=== PATIENT | female | born 1950 | race African-American/Black ===

== ENCOUNTER 2017-11-11 23:36 | Inpatient (IN) | payer OTHER ==
[~2017-11-11] VITALS: Ht 152.4 cm; Wt 63.5 kg
--- NOTE | ~2017-11-11 | WRIGHTHP ---
[place], [place] PATIENT HISTORY AND PHYSICAL EXAM NAME: JEANNIE FINCH UNIT #: [id number] ROOM: 314 DOCTOR: NIHARIKA VELAZQUEZ MD BIRTHDATE: [birth year] DOS: 11/12/2017 CHIEF COMPLAINT: "I need to find a new home. I need to call Andrew." HISTORY OF PRESENT ILLNESS: This is a 67-year-old black female who is a resident of the [facility]. The patient apparently has a lengthy history of schizoaffective disorder. Her daughter is her power of attorney lawyer. Daughter has been paying for her to go out to have nails done and go shopping. However, on a recent trip, the patient went to see her primary care doctor who did prescribe her several insulin pens and Percocet and she then went to pick these up at the pharmacy and kept them with her. Staff then noted that she refused to give up the insulin and was injecting herself with high doses of insulin putting herself at significant risk of harm. The patient has been noncompliant with her care and has been volatile and paranoid and agitated. When she was admitted here to the unit initially she was found to have $5500 in her purse, as well as two containers of a white powder crystalline substance that she claims is baking soda that was confiscated by the police to be analyzed. The patient since her admission has been volatile and demanding and her stories have been somewhat inconsistent. She does seem to be paranoid and delusional and she is admitted now to rule out any multiple possible organic issues, stabilizing on medication and then returning to the least restrictive environment. PAST MEDICAL HISTORY: Remarkable for asthma, chronic kidney disease, depression, diabetes, seizures, GERD, congestive heart failure, hyperlipidemia, hypertension, hypothyroidism, iron deficiency anemia, psoriasis, sleep apnea, TIAs, vitamin D deficiencies and schizoaffective disorder. MENTAL STATUS: The patient is alert and oriented x 3 with some time gaps. Mood does seem to be labile. Affect is inappropriate. She jumps from topic to topic. She is very much fixated on calling Andrew. At first she stated that Andrew was somebody who was helping her with placement. After repeatedly stating that we would help her with placement, she then stated that Andrew was somebody else she needed to talk to. She would not elaborate any further. Memory for the most part is intact with some gaps. DIAGNOSIS: Schizoaffective disorder. PLAN: She has been started on Risperdal M-Tab to improve compliance. I will plan to load with Invega Sustenna 234 mg IM tomorrow. Vitamin D level is low at 11.7. We will augment with vitamin D 50,000 units weekly. The [facility] Police have confiscated the two containers of the white powdery substance and are analyzing them. 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 We will continue to attempt to engage the patient in individual and guillen milieu activity with the ultimate plan to return to the least restrictive environment when psychiatrically stable. [place], [place] PATIENT HISTORY AND PHYSICAL EXAM NAME: JEANNIE FINCH UNIT #: [id number] ROOM: [facility] DOCTOR: NIHARIKA VELAZQUEZ MD BIRTHDATE: [birth year] NIHARIKA VELAZQUEZ MD CM:HISPHYS:PATIENT HISTORY AND PHYSICAL EXAMINATION 1236 1300 NIHARIKA VELAZQUEZ MD 11/12/17 1300 interface
[~2017-11-11 23:36] MED LIST: AMLODIPINE BESY10 MG PO; ASPIRIN325 MG PO; CARVEDILOL25 MG PO; DULERA 200 MCG8.8 GM INH; DUONEB 3 MG/3 ML3 M1 INH; HUMALOG100 UNIT/1 SC; HYDRALAZINE HYD50 MG PO; IRON325 M1 PO; LANTUS SOL100 UNIT/1 SC; LASIX40 MG PO; LEVOTHYROXINE100 MC1 PO; LIPITOR40 MG PO; LOSARTAN POTAS100 M1 PO; MIRALAX119 GM PO; PANTOPRAZOLE SO40 MG PO; PROAIR HFA8.5 GM INH
[2017-11-11 23:55] VITALS: BP 176/80
[2017-11-12 00:30] LABS: BILIRUBIN NEGATIVE (NEGATIVE); BLOOD 2+ (NEGATIVE); CLARITY CLEAR (CLEAR); COLOR YELLOW (YELLOW); GLUCOSE 2+ (NEGATIVE); KETONE NEGATIVE (NEGATIVE); LEUKO ESTERASE NEGATIVE (NEGATIVE); NITRITE NEGATIVE (NEGATIVE); PH 5.5 (5.0-9.0); UROBILINOGEN 0.2 E.U./dl (0.2-1.0)
[2017-11-12 00:39] LABS: URINE AMPHETAMINES < 1000 (1000ng/ml); URINE BARBITURATES < 200 (200ng/ml); URINE BENZODIAZEPINES < 200 (200ng/ml); URINE CANNABINOIDS (THC) < 50 (50ng/ml); URINE COCAINE < 300 (300ng/ml); URINE METHADONE < 300 (300ng/ml); URINE OPIATES < 300 (300ng/ml); URINE PHENCYCLIDINE < 25 (25ng/ml)
[2017-11-12 01:08] VITALS: BP 168/84
[2017-11-12 01:10] LABS: BASO % 0.3 % (0.0-1.0); EOS # 0.2 10*3/uL (0.0-0.4); EOS % 2.7 % (1.0-4.0); HEMATOCRIT 27.5 % (37.0-47.0); HEMOGLOBIN 8.9 g/dl (12.0-16.0); LYMPH # 1.4 10*3/uL (1.3-4.4); LYMPH % 21.8 % (27.0-41.0); MEAN CELL VOLUME 87.6 fl (81.0-99.0); MEAN CORPUSCULAR HGB 28.3 pg (27.0-31.0); MEAN CORPUSCULAR HGB CONC 32.4 g/dl (33.0-37.0); MEAN PLATELET VOLUME 9.7 fl (9.6-12.3); MONO # 0.5 10*3/uL (0.1-1.0); MONO % 8.2 % (3.0-9.0); NEUT # 4.2 10*3/uL (2.3-7.9); NEUT % 66.8 % (47.0-73.0); PLATELET COUNT AUTOMATED 244 10*3/uL (130-400); RED BLOOD COUNT 3.14 10*6/uL (4.10-5.10); RED CELL DISTRI WIDTH 17.5 % (0-14.5); WHITE BLOOD COUNT 6.2 10*3/uL (4.8-10.8)
[2017-11-12 01:26] LABS: ACETAMINOPHEN (TYLENOL) < 2.0 ug/ml (10-30); ALBUMIN 2.7 gm/dl (3.1-4.5); ALKALINE PHOSPHATASE 115 U/L (45-117); BUN 52 mg/dl (7-24); CHLORIDE 110 mmol/L (98-107); CREATININE 2.56 mg/dL (0.55-1.02); ETHYL ALCOHOL < 3.0 mg/dl (<3); POTASSIUM 4.6 mmol/L (3.5-5.1); SGOT/AST 24 IU/L (3-35); SGPT/ALT 43 U/L (12-78); SODIUM 137 mmol/L (136-145); TOTAL PROTEIN 6.4 gm/dL (6.4-8.2)
[2017-11-12 03:49] VITALS: BP 180/73
[2017-11-12 08:23] VITALS: BP 180/80
[2017-11-12 08:25] LABS: VITAMIN D, 25-HYDROXY 11.7 ng/mL (30-100)
[2017-11-12 14:00] VITALS: BP 142/58
[2017-11-12 23:19] VITALS: BP 142/78
[2017-11-13 03:15] VITALS: BP 161/61
[2017-11-13] MEDS ORDERED: REMERON SOLTAB15 MG PO (03:51)
[2017-11-13] MEDS ORDERED: RISPERDAL M-TAB1 MG PO (03:52)
[2017-11-13] MEDS ORDERED: INVEGA SUSTENN234 MG IM (03:54)
== END 2017-11-13 03:49 | disposition short-term general hospital (02) | DRG 885 ==
LOC: ED → 3N 11-12 01:43
PROVIDERS: Emergency Medicine Emergency Medical Services; Psychiatry & Neurology Psychiatry
DX: F25.9 Schizoaffective disorder, unspecified (principal); N17.0 Acute kidney failure with tubular necrosis; E87.8 Other disorders of electrolyte and fluid balance, not elsewhere classified; E44.0 Moderate protein-calorie malnutrition; N18.4 Chronic kidney disease, stage 4 (severe); I13.0 Hypertensive heart and chronic kidney disease with heart failure and stage 1 through stage 4 chronic kidney disease, or unspecified chronic kidney disease; I50.9 Heart failure, unspecified; D50.9 Iron deficiency anemia, unspecified; J45.909 Unspecified asthma, uncomplicated; F32.9 Major depressive disorder, single episode, unspecified; G47.30 Sleep apnea, unspecified; L40.9 Psoriasis, unspecified; E55.9 Vitamin D deficiency, unspecified; F41.9 Anxiety disorder, unspecified; E11.22 Type 2 diabetes mellitus with diabetic chronic kidney disease; K21.9 Gastro-esophageal reflux disease without esophagitis; E78.5 Hyperlipidemia, unspecified; E03.9 Hypothyroidism, unspecified; D72.810 Lymphocytopenia; E11.65 Type 2 diabetes mellitus with hyperglycemia; Z83.3 Family history of diabetes mellitus; Z88.6 Allergy status to analgesic agent; Z79.1 Long term (current) use of non-steroidal anti-inflammatories (NSAID); Z79.82 Long term (current) use of aspirin; Z79.899 Other long term (current) drug therapy; Z79.4 Long term (current) use of insulin; Z86.73 Personal history of transient ischemic attack (TIA), and cerebral infarction without residual deficits

== ENCOUNTER 2017-11-13 03:51 | Inpatient (IN) | payer OTHER ==
[~2017-11-13] VITALS: Ht 152.4 cm; Wt 74.6 kg
--- NOTE | ~2017-11-13 | CON ---
[place], [place] REPORT OF CONSULTATION NAME: JEANNIE FINCH UNIT #: [id number] ROOM: [facility] DOCTOR: NIHARIKA VELAZQUEZ MD BIRTHDATE: [birth year] DOS: 11/14/2017 PSYCHIATRIC CONSULT CHIEF COMPLAINT: "Oh they gave me too much insulin, I feel better now." HISTORY OF PRESENT ILLNESS: This is a 67-year-old black female who was initially admitted to the [facility] unit from the [facility], the patient was admitted due to significant mood alteration. She apparently had gone out of the building and went to her previous primary care doctor receiving multiple prescriptions for controlled substances as well as several insulin pens. She refused to give up the insulin pens and was given herself injections causing her blood sugar to be critically low. She represented a significant risk of harm to self and also others because she was making threats to staff and residents. She was ultimately admitted to the U. Following admission to the U, her blood sugar was found to be very high at 557. She was given 50 units of NovoLog and 10 units of Levemir. She was checked an hour later and was still 440. At 3 a.m., she was checked once again and her sugar was critically low. They were unable to give her any type of an amp of D50 and she ended up having a seizure. Rapid response was called and they were able to give her an amp of D50 IM and her seizure was resolved. She was transferred to ICU, however, for further medical workup and stabilization. She currently is alert and oriented. She does state that she is hopeful that we can help her, find alternative placement as it is possible that the [facility] does not want her back. PAST MEDICAL HISTORY: Remarkable for asthma, chronic kidney disease, diabetes, seizure disorder, GERD, heart failure, hyperlipidemia, hypertension, hypothyroidism, iron deficiency anemia, psoriasis, sleep apnea, vitamin D deficiency, TIAs and schizoaffective disorder. MENTAL STATUS: She is alert and oriented with some time gaps. Mood seems fairly euthymic. Affect appropriate. There is no christen or hypomania. There are no auditory or visual hallucinations. She engages readily in conversation. Memory for the most part is intact. DIAGNOSIS: Schizoaffective disorder by history. PLAN: At this point, I would be happy to take her back on to the [facility]al [facility] Unit for further evaluation and treatment. I would suggest that vp digital marketing social media and crm whether it be through ICU staff or our vp digital marketing social media and crm began to look for alternative placement for her. Should you require any further intervention, please feel free to contact me at any time. [place], [place] REPORT OF CONSULTATION NAME: JEANNIE FINCH UNIT #: [id number] ROOM: [facility] DOCTOR: NIHARIKA VELAZQUEZ MD BIRTHDATE: [birth year] NIHARIKA VELAZQUEZ MD CM:CONSTR:REPORT OF CONSULTATION 1052 11/14/17 1134 interface
[2017-11-13 03:45] VITALS: BP 153/55
[~2017-11-13 03:51] MED LIST changes: +REMERON SOLTAB15 MG PO
[2017-11-13] MEDS ORDERED: RISPERDAL M-TAB1 MG PO (03:52)
[2017-11-13] MEDS ORDERED: INVEGA SUSTENN234 MG IM (03:54)
[2017-11-13 04:00] VITALS: BP 153/55
[2017-11-13 04:21] LABS: BASO % 0.5 % (0.0-1.0); EOS # 0.2 10*3/uL (0.0-0.4); HEMATOCRIT 25.9 % (37.0-47.0); HEMOGLOBIN 8.5 g/dl (12.0-16.0); LYMPH # 0.9 10*3/uL (1.3-4.4); LYMPH % 21.9 % (27.0-41.0); MEAN CELL VOLUME 87.5 fl (81.0-99.0); MEAN CORPUSCULAR HGB 28.7 pg (27.0-31.0); MEAN CORPUSCULAR HGB CONC 32.8 g/dl (33.0-37.0); MEAN PLATELET VOLUME 9.7 fl (9.6-12.3); MONO # 0.4 10*3/uL (0.1-1.0); MONO % 9.9 % (3.0-9.0); NEUT # 2.7 10*3/uL (2.3-7.9); NEUT % 63.2 % (47.0-73.0); PLATELET COUNT AUTOMATED 219 10*3/uL (130-400); RED BLOOD COUNT 2.96 10*6/uL (4.10-5.10); RED CELL DISTRI WIDTH 17.6 % (0-14.5); WHITE BLOOD COUNT 4.3 10*3/uL (4.8-10.8)
[2017-11-13 04:38] LABS: ALBUMIN 2.6 gm/dl (3.1-4.5); CREATININE 2.78 mg/dL (0.55-1.02); PHOSPHOROUS 3.1 mg/dL (2.5-4.9); POTASSIUM 4.2 mmol/L (3.5-5.1); TOTAL PROTEIN 6.1 gm/dL (6.4-8.2)
[2017-11-13 08:00] VITALS: BP 157/67
[2017-11-13 12:00] VITALS: BP 172/80
[2017-11-13 15:26] LABS: BILIRUBIN NEGATIVE (NEGATIVE); BLOOD 2+ (NEGATIVE); CLARITY CLEAR (CLEAR); COLOR YELLOW (YELLOW); GLUCOSE 3+ (NEGATIVE); KETONE TRACE (NEGATIVE); LEUKO ESTERASE NEGATIVE (NEGATIVE); NITRITE NEGATIVE (NEGATIVE); PH 5.5 (5.0-9.0); SPECIFIC GRAVITY 1.015 (1.005-1.030); UROBILINOGEN 0.2 E.U./dl (0.2-1.0)
[2017-11-13 15:50] LABS: BACTERIA 2+; WBC 21-30 wbc/hpf (0-5)
[2017-11-13 16:00] VITALS: BP 122/50
[2017-11-13 20:00] VITALS: BP 142/78
[2017-11-14] VITALS: BP 154/52
[2017-11-14 04:00] VITALS: BP 119/53
[2017-11-14 05:53] LABS: ALBUMIN 2.3 gm/dl (3.1-4.5); CREATININE 2.57 mg/dL (0.55-1.02); PHOSPHOROUS 3.5 mg/dL (2.5-4.9); POTASSIUM 4.6 mmol/L (3.5-5.1); TOTAL PROTEIN 5.5 gm/dL (6.4-8.2)
[2017-11-14 05:54] LABS: BASO % 0.4 % (0.0-1.0); EOS # 0.1 10*3/uL (0.0-0.4); HEMATOCRIT 24.7 % (37.0-47.0); HEMOGLOBIN 8.1 g/dl (12.0-16.0); LYMPH # 1.1 10*3/uL (1.3-4.4); MEAN CELL VOLUME 88.2 fl (81.0-99.0); MEAN CORPUSCULAR HGB 28.9 pg (27.0-31.0); MEAN CORPUSCULAR HGB CONC 32.8 g/dl (33.0-37.0); MONO # 0.3 10*3/uL (0.1-1.0); MONO % 6.2 % (3.0-9.0); NEUT # 3.2 10*3/uL (2.3-7.9); PLATELET COUNT AUTOMATED 212 10*3/uL (130-400); RED CELL DISTRI WIDTH 17.3 % (0-14.5); WHITE BLOOD COUNT 4.7 10*3/uL (4.8-10.8)
[2017-11-14 08:00] VITALS: BP 150/60
[2017-11-14 12:00] VITALS: BP 155/93
[2017-11-14 16:00] VITALS: BP 101/67
[2017-11-14 20:00] VITALS: BP 152/63
[2017-11-15] VITALS: BP 154/61
[2017-11-15 05:54] LABS: BASO % 0.2 % (0.0-1.0); EOS # 0.1 10*3/uL (0.0-0.4); HEMATOCRIT 23.3 % (37.0-47.0); HEMOGLOBIN 8.1 g/dl (12.0-16.0); LYMPH # 1.2 10*3/uL (1.3-4.4); LYMPH % 26.7 % (27.0-41.0); MEAN CELL VOLUME 85.7 fl (81.0-99.0); MEAN CORPUSCULAR HGB 29.8 pg (27.0-31.0); MEAN CORPUSCULAR HGB CONC 34.8 g/dl (33.0-37.0); MEAN PLATELET VOLUME 10.4 fl (9.6-12.3); MONO # 0.4 10*3/uL (0.1-1.0); MONO % 8.1 % (3.0-9.0); NEUT # 2.7 10*3/uL (2.3-7.9); NEUT % 61.3 % (47.0-73.0); PLATELET COUNT AUTOMATED 206 10*3/uL (130-400); RED BLOOD COUNT 2.72 10*6/uL (4.10-5.10); RED CELL DISTRI WIDTH 17.3 % (0-14.5); WHITE BLOOD COUNT 4.3 10*3/uL (4.8-10.8)
[2017-11-15 06:05] LABS: CREATININE 2.34 mg/dL (0.55-1.02); POTASSIUM 4.9 mmol/L (3.5-5.1)
[2017-11-15 06:10] LABS: HEPATITIS B SURFACE AG Negative (Negative); HEPATITIS C VIRUS ANTIBODY 0.1 s/co (0.0-0.9)
[2017-11-15 08:00] VITALS: BP 170/66
[2017-11-15 08:13] LABS: COMPLEMENT C4 001834 28 mg/dL (14-44)
[2017-11-15 12:00] VITALS: BP 162/76
[2017-11-15] MEDS ORDERED: LASIX40 MG PO (13:13)
[2017-11-15] MEDS ORDERED: Insulin Lispro, Reco SC (13:13)
[2017-11-15] MEDS ORDERED: LEVEMIR100 UNIT/1 SC (13:13)
[2017-11-17 14:06] LABS: ATYPICAL PANCA <1:20 titer (Neg:<1:20); CYTOPLASMIC (C-ANCA) <1:20 titer (Neg:<1:20)
[2017-11-17 15:08] LABS: A/G RATIO 1.1 (0.7-1.7); ALBUMIN 2.7 g/dL (2.9-4.4); ALPHA-1-GLOBULIN 0.2 g/dL (0.0-0.4); ALPHA-2-GLOBULIN 0.9 g/dL (0.4-1.0); BETA GLOBULIN 0.7 g/dL (0.7-1.3); GAMMA GLOBULIN 0.7 g/dL (0.4-1.8); GLOBULIN, TOTAL 2.5 g/dL (2.2-3.9); M-SPIKE Not Observed g/dL (Not Observed); TOTAL PROTEIN, SERUM 5.2 g/dL (6.0-8.5)
== END 2017-11-15 14:51 | disposition home health service (06) | DRG 637 ==
LOC: ICCU 03:51 → 4E 11-14 15:10
PROVIDERS: Internal Medicine; Internal Medicine Hospice and Palliative Medicine; Student in an Organized Health Care Education/Training Program
DX: E11.649 Type 2 diabetes mellitus with hypoglycemia without coma (principal); E43 Unspecified severe protein-calorie malnutrition; N17.0 Acute kidney failure with tubular necrosis; I13.0 Hypertensive heart and chronic kidney disease with heart failure and stage 1 through stage 4 chronic kidney disease, or unspecified chronic kidney disease; G40.909 Epilepsy, unspecified, not intractable, without status epilepticus; E87.8 Other disorders of electrolyte and fluid balance, not elsewhere classified; I50.9 Heart failure, unspecified; E83.41 Hypermagnesemia; D50.9 Iron deficiency anemia, unspecified; N18.4 Chronic kidney disease, stage 4 (severe); J45.909 Unspecified asthma, uncomplicated; F32.9 Major depressive disorder, single episode, unspecified; K21.9 Gastro-esophageal reflux disease without esophagitis; F25.9 Schizoaffective disorder, unspecified; D72.810 Lymphocytopenia; E78.5 Hyperlipidemia, unspecified; E11.22 Type 2 diabetes mellitus with diabetic chronic kidney disease; E03.9 Hypothyroidism, unspecified; F41.9 Anxiety disorder, unspecified; K59.00 Constipation, unspecified; G47.30 Sleep apnea, unspecified; L40.9 Psoriasis, unspecified; Z68.28 Body mass index [BMI] 28.0-28.9, adult; Z79.4 Long term (current) use of insulin; Z86.73 Personal history of transient ischemic attack (TIA), and cerebral infarction without residual deficits; Z82.3 Family history of stroke; Z80.7 Family history of other malignant neoplasms of lymphoid, hematopoietic and related tissues; Z88.8 Allergy status to other drugs, medicaments and biological substances; Z79.82 Long term (current) use of aspirin; Z79.899 Other long term (current) drug therapy

== ENCOUNTER 2017-11-15 14:26 | Inpatient (IN) | payer OTHER ==
[~2017-11-15] VITALS: Ht 152.4 cm; Wt 65.8 kg
--- NOTE | ~2017-11-15 | PR ---
[place], [place] PROGRESS NOTE NAME: JEANNIE FINCH UNIT #: [id number] ROOM: 309 DOCTOR: NIHARIKA VELAZQUEZ MD BIRTHDATE: [birth year] DOS: 11/17/2017 CHIEF COMPLAINT: "Hey, baby how you doing today?" SUMMARY OF THE VISIT: The patient was interviewed as she was in her room. She was eating breakfast. She engaged readily in conversation. She continues to minimize any issues and feels that everything is good. Her blood sugars continue to be in the high 400s and low 500s. MENTAL STATUS: She is alert and oriented to person, place and very much almost to time. Mood does seem to be more euthymic. Affect is more appropriate. There is no hypomania or christen. There are no gross psychotic symptoms. There are no auditory or visual hallucinations. No paranoia. For the most part memory is intact. She lacks insight; however, into her behavior and given the severity of her blood sugars really should be placed into some type of assisted living or a long-term care facility. PLAN: At this point is to maintain the current psychotropic regimen, continue to explore possible placement options. As mentioned above, the severity of her diabetes is such that she more than likely will require long-term care, as I do not know if the assisted living is going to be able to monitor her blood sugars as closely as they need to. We will continue to engage her in individual and guillen milieu activity with the ultimate plan to return to the least restrictive environment when psychiatrically stable. NIHARIKA VELAZQUEZ MD CM:PNTRANS [id number] NIHARIKA VELAZQUEZ MD 11/17/17 0909 interface
--- NOTE | ~2017-11-15 | PR ---
[place], [place] PROGRESS NOTE NAME: JEANNIE FINCH UNIT #: [id number] ROOM: 309 DOCTOR: NIHARIKA PHILIP MD BIRTHDATE: [birth year] DOS: 11/18/2017 CHIEF COMPLAINT: "Oh, Dr. Philip, you have been just so wonderful, thank you." SUMMARY OF THE VISIT: The patient was interviewed in her bedroom. She was resting quietly in bed, but engaged readily in conversation. She reports that she is anxious to leave the hospital and thanked us all for everything that we have done. She has been fairly bright and compliant. She has not been agitated or aggressive. She has been taking her medications as prescribed. MENTAL STATUS: She is alert and oriented x 3. Mood does seem to be strongly trending towards euthymia. Affect is much more appropriate. There is no symptom suggestive of hypomania or christen. There are no overt auditory or visual hallucinations. No delusions, no paranoia. For the most part memory is fully intact. PLAN: To maintain her current psychotropic regimen. We are exploring placement options. At the present time, it appears as though the patient was in an assisted living unit at the [facility]. We will continue to explore whether this remains an option or if we can find an additional place that would be appropriate for her to be stepped down to. At this point, we will continue to engage her in individual and guillen milieu activity, returning to the least restrictive environment when stable. NIHARIKA PHILIP MD CM:PNTRANS NIHARIKA PHILIP MD 11/18/17 0955 interface
--- NOTE | ~2017-11-15 | PR ---
[place], [place] PROGRESS NOTE NAME: JEANNIE FINCH UNIT #: [id number] ROOM: 309 DOCTOR: NIHARIKA PHILIP MD BIRTHDATE: [birth year] DOS: 11/19/2017 CHIEF COMPLAINT: "When do I get to go home Dr. Philip?" SUMMARY OF THE VISIT: The patient was interviewed in her room. She was very alert and oriented, very gregarious and friendly. She reports that she is feeling well and is hopeful that she is able to leave here soon. She also is hopeful that she can leave isolation and be able to integrate with the general population on the unit and attend groups and other activities. She has been compliant with all aspects of care. She has been attending to her ADLs. She has not been combative or resistant to care in any way. MENTAL STATUS: She is alert and oriented. Mood does seem to be euthymic. Affect appropriate. There is no christen or hypomania. There are no overt auditory or visual hallucinations. No delusions, no paranoia. Memory for the most part is intact. PLAN: I will continue her current psychotropic regimen, continue to explore alternative placement options, plan to discharge then when psychiatrically stable. NIHARIKA PHILIP MD CM:PNTRANS NIHARIKA PHILIP MD 11/19/17 0942 interface
--- NOTE | ~2017-11-15 | PR ---
[place], [place] PROGRESS NOTE NAME: JEANNIE FINCH UNIT #: [id number] ROOM: 309 DOCTOR: NIHARIKA VELAZQUEZ MD BIRTHDATE: [birth year] DOS: 11/20/2017 CHIEF COMPLAINT: "When do I get out of here. I would like to leave before Easter." SUMMARY OF THE VISIT: The patient was interviewed in her room. She was resting quietly in bed and engaged readily in conversation. She reports frustration that she is in isolation and does not understand why she cannot be out with the general population. She is also very frustrated that she is not able to go to an assisted living yet. I did discuss with her that all of these things are in the process of being resolved and that hopefully she will be discharged soon. She nodded in approval. She has been more compliant and able to engage more readily in meaningful conversation. She still at times though has limited insight into her behavior and continues to want to make appointments to see her outpatient physician, even though this has gotten her into significant problems with her medication. MENTAL STATUS: She is alert and oriented with some time gaps. Mood does seem to be strongly trending towards euthymia. Affect is appropriate. There is no christen or hypomania. There are no gross psychotic symptoms. Memory for the most part is intact. PLAN: I will maintain her current psychotropic regimen, continue to engage in individual and guillen milieu activity. I have discussed this case with social worker school and they are in the process of finishing a referral to [facility]. We will proceed with discharge once this process is complete. NIHARIKA VELAZQUEZ MD CM:PNTRANS [id number] NIHARIKA VELAZQUEZ MD 11/20/17 0951 interface
--- NOTE | ~2017-11-15 | WRIGHTHP ---
[place], [place] PATIENT HISTORY AND PHYSICAL EXAM NAME: JEANNIE FINCH UNIT #: [id number] ROOM: 309 DOCTOR: NIHARIKA VELAZQUEZ MD BIRTHDATE: [birth year] DOS: 11/16/2017 INITIAL PSYCHIATRIC EVALUATION CHIEF COMPLAINT: "Oh, I am doing good baby, I am doing really good." HISTORY OF PRESENT ILLNESS: This is a 67-year-old black female who was previously admitted to the [facility] from the [facility]. The patient has a lengthy history of schizoaffective disorder and diabetes. The patient had been going out to get her nails done and grocery shopping with the daughter's helped. Instead, the patient went to her PCP and was prescribed Percocet and insulin pens. The patient did pick these up and kept them on her person and refused to give them to the staff at the halfway. She was injecting herself with high doses of insulin and refused to give up the insulin pens. She became very noncompliant with care and agitated. She was ultimately brought here to be evaluated. In the course of this evaluation was found to have $5500 in bruner on her person as well as 2 containers of a white powdery substance that ultimately turned out not to be drugs. Once admitted to the U, her sugars were up and down and at one point extremely elevated, insulin was given which bottomed out her sugar and she had a seizure and went to ICU for further treatment. Once stabilized there, she continued to exhibit some mood lability and agitation and was subsequently sent back to the U for crisis stabilization and to help assist with placement. PAST MEDICAL HISTORY: Remarkable for asthma, chronic kidney disease, diabetes, seizure disorder, GERD, congestive heart failure, hyperlipidemia, hypertension, hypothyroid, iron deficiency anemia, psoriasis, sleep apnea, TIAs, vitamin D deficiency and the lengthy history of schizoaffective disorder. MENTAL STATUS: The patient is alert and oriented with some time gaps, overall though she is fairly well intact. She is fairly euthymic in her presentation and engages readily in conversation with me. She is not agitated or aggressive. She is not exhibiting mood lability. She may have some mild delusions, but even this is less in frequency and intensity. Memory for the most part is intact. DIAGNOSIS: Schizoaffective disorder. PLAN: The patient is at least taking the Risperdal M-Tab at this point in time, but is refusing the Invega Sustenna injection. I will go ahead and discontinue the injection given her compliance with the oral agent. We will continue to engage in individual and guillen milieu activity, explore placement options and discharge then when stable and when an option that is suitable is found. [place], [place] PATIENT HISTORY AND PHYSICAL EXAM NAME: JEANNIE FINCH UNIT #: [id number] ROOM: 309 DOCTOR: NIHARIKA VELAZQUEZ MD BIRTHDATE: [birth year] NIHARIKA VELAZQUEZ MD CM:HISPHYS:PATIENT HISTORY AND PHYSICAL EXAMINATION 4 1 NIHARIKA VELAZQUEZ MD 11/16/17911 interface
--- NOTE | ~2017-11-15 | DS ---
[place], [place] DISCHARGE SUMMARY NAME: JEANNIE FINCH UNIT #: [id number] ROOM: 309 DOCTOR: NIHARIKA VELAZQUEZ MD BIRTHDATE: [birth year] DOS: 11/21/2017 CHIEF COMPLAINT: "Oh, I am doing okay baby, I am doing really good." HISTORY OF PRESENT ILLNESS: This is a 67-year-old black female who was previously admitted to the [facility] from the [facility]. The patient has a lengthy history of schizoaffective disorder and diabetes. What precipitated her admission to the [facility] in the first place was that the patient was given money by her daughter who is her guardian to get her nails done and do some grocery shopping. Instead, the patient went to her primary care physician and was prescribed Percocet and several insulin pens. When she returned back to the long-term care facility, she refused to give either of these up and was dangerously injecting herself with insulin, causing her blood sugars peak in value consistently. When attempted to be redirected, the patient became physically combative. She was brought to the U where she was found to have two containers of a white powdery substance that was suspicious for drugs, but turned out to be negative. She also had $5500 in bruner on her person. After being admitted to the U, the patient had ongoing issues with her blood sugar. It was running in the high 400s and 500s. She was given insulin and ended up having her blood sugar crash, resulting in her needing to go to ICU for crisis stabilization. When she was stabilized medically, she is now sent back to the [facility] for further psychiatric management. PAST MEDICAL HISTORY: Remarkable for chronic kidney disease, diabetes, seizure disorder, GERD, congestive heart failure, hyperlipidemia, hypertension, hypothyroidism, iron deficiency anemia, psoriasis, sleep apnea, vitamin D deficiency and a lengthy history of schizoaffective disorder. SUMMARY OF HOSPITAL COURSE: The patient was admitted to the unit where she was ordered Risperdal M-Tab 1 mg twice daily and Remeron SolTab 15 mg at bedtime. We did attempt to offer her Invega Sustenna, but she continued to refuse the Invega throughout the early part of her stay, so it was eventually discontinued. She did, however, continue taking both the Remeron and the Risperdal. Her behavior came under control in the sense that she was no longer verbally or physically combative. She followed the rules and regulations. She did because of MRSA in her nares was isolated, but she did not at any point in time attempt to leave her room. She did not test limits. She tolerated the medications well. She still lacks a great deal of insight into her illness and does not understand some of the ramifications of her behavior, but this is long going and not amenable to any medication at this point. The patient had improved sufficiently with the combination of the Remeron SolTab and Risperdal M-Tab to return to a long-term care facility, [facility] was the facility to which the patient was discharged for further treatment. MENTAL STATUS AT DISCHARGE: The patient is alert and oriented to person, place and time. Mood does seem to be strongly trending towards euthymia. Affect is more appropriate. There is no christen or hypomania. There are no gross psychotic symptoms at the present time. Memory for the most part is intact. DIAGNOSIS UPON DISCHARGE: Schizoaffective disorder. [place], [place] DISCHARGE SUMMARY NAME: JEANNIE FINCH UNIT #: [id number] ROOM: 309 DOCTOR: NIHARIKA VELAZQUEZ MD BIRTHDATE: [birth year] PLAN: Her prescriptions for Risperdal M-Tab and Remeron SolTab were printed and will be sent with her. She will have followup by the psychiatrist of record at [facility]. Medically and psychiatrically she is stable. Her biopsychosocial needs will be met by [facility]. NIHARIKA VELAZQUEZ MD CM:DISCHARG 4 NIHARIKA VELAZQUEZ MD 11/21/17904 interface
[~2017-11-15 14:26] MED LIST changes: +INVEGA SUSTENN234 MG IM; +Insulin Lispro, Reco SC; +LEVEMIR100 UNIT/1 SC; +RISPERDAL M-TAB1 MG PO
[2017-11-15 15:10] VITALS: BP 106/94
[2017-11-15 15:37] VITALS: BP 106/94
[2017-11-15 20:05] VITALS: BP 138/89
[2017-11-16 07:41] VITALS: BP 154/70
[2017-11-16 20:00] VITALS: BP 136/74
[2017-11-17 07:42] VITALS: BP 132/54
[2017-11-17 20:00] VITALS: BP 129/83
[2017-11-18 08:02] VITALS: BP 134/76
[2017-11-18 21:46] VITALS: BP 131/59
[2017-11-19 07:51] VITALS: BP 146/58
[2017-11-19 14:17] VITALS: BP 131/65
[2017-11-19 21:02] VITALS: BP 150/70
[2017-11-20 07:49] VITALS: BP 120/70
[2017-11-20 19:17] VITALS: BP 111/62
[2017-11-21 07:44] VITALS: BP 118/72
[2017-11-21] MEDS ORDERED: RISPERIDONE M-TA1 MG BC (08:08)
[2017-11-21] MEDS ORDERED: MIRTAZAPINE15 M1 PO (08:08)
== END 2017-11-21 15:37 | disposition other institution (70) | DRG 885 ==
LOC: 3N 14:26
DX: F25.9 Schizoaffective disorder, unspecified (principal); E11.22 Type 2 diabetes mellitus with diabetic chronic kidney disease; I13.0 Hypertensive heart and chronic kidney disease with heart failure and stage 1 through stage 4 chronic kidney disease, or unspecified chronic kidney disease; I50.9 Heart failure, unspecified; R56.00 Simple febrile convulsions; E11.65 Type 2 diabetes mellitus with hyperglycemia; F32.9 Major depressive disorder, single episode, unspecified; F41.9 Anxiety disorder, unspecified; E78.5 Hyperlipidemia, unspecified; E03.9 Hypothyroidism, unspecified; N18.9 Chronic kidney disease, unspecified; J45.909 Unspecified asthma, uncomplicated; K21.9 Gastro-esophageal reflux disease without esophagitis; L40.9 Psoriasis, unspecified; G47.30 Sleep apnea, unspecified; E55.9 Vitamin D deficiency, unspecified; Z86.73 Personal history of transient ischemic attack (TIA), and cerebral infarction without residual deficits; Z79.4 Long term (current) use of insulin; Z87.891 Personal history of nicotine dependence; Z80.9 Family history of malignant neoplasm, unspecified; Z88.6 Allergy status to analgesic agent; Z88.8 Allergy status to other drugs, medicaments and biological substances; Z79.82 Long term (current) use of aspirin; Z79.899 Other long term (current) drug therapy